=== PATIENT | female | born 1955 | race Caucasian/White ===

== ENCOUNTER → 2016-07-16 | Day surgery (SDC) | payer OTHER ==
[2016-07-16 11:34] LABS: HGB 14.4 g/dl (12.5-16.0); MCH 28.5 pg (25.0-31.0); MCHC 33.5 g/dL (32.0-36.0); MPV 8.9 fL (6.0-9.5); RBC 5.06 M/uL (4.20-5.40); RDW 12.5 % (11.5-14.0)
[2016-07-16 11:50] LABS: ALBUMIN 4.7 g/dL (3.5-5.0); BILIRUBIN - TOTAL 0.6 mg/dL (0.1-1.0); CREATININE 0.6 mg/dL (0.5-1.0); GLOBULIN (CALCULATION) 2.3 g/dL (2.2-4.2); POTASSIUM 4.2 mmol/L (3.5-5.1)
== END | disposition home or self-care (01) ==
LOC: FAS 11:14
PROVIDERS: Orthopaedic Surgery
DX: M23.222 Derangement of posterior horn of medial meniscus due to old tear or injury, left knee (principal); M17.12 Unilateral primary osteoarthritis, left knee; M25.862 Other specified joint disorders, left knee; K63.5 Polyp of colon; K21.9 Gastro-esophageal reflux disease without esophagitis; E03.9 Hypothyroidism, unspecified; Z90.49 Acquired absence of other specified parts of digestive tract; Z90.89 Acquired absence of other organs; Z79.1 Long term (current) use of non-steroidal anti-inflammatories (NSAID); Z79.899 Other long term (current) drug therapy; Z98.890 Other specified postprocedural states
CPT/HCPCS: 36415; 80053; J1170; J1885; J2405; J2704; J3010; J7325

== ENCOUNTER → 2020-12-04 | Day surgery (SDC) | payer OTHER ==
[~2020-12-04] VITALS: Ht 160 cm; Wt 61.2 kg
[~2020-12-04] MED LIST: COLESTIPOL HCL1 GM PO; IRON 100 PLUS1 EACH PO; LITHIUM CARBON450 MG PO; MOBIC15 MG PO; MONTELUKAST SOD10 MG PO; PERCOCET 5-3251 EACH PO; SYNTHROID100 MCG PO; VITAMIN B 12 PO; VITAMIN E45 MG PO
[2020-12-04 08:20] LABS: HCT 45.7 % (37.0-47.0); HGB 14.8 g/dl (12.5-16.0); MCH 28.7 pg (25.0-31.0); MCHC 32.4 g/dL (32.0-36.0); MCV 88.7 fL (78.0-100.0); MPV 8.7 fL (6.0-9.5); RBC 5.15 M/uL (4.20-5.40); RDW 11.9 % (11.5-14.0); WBC 6.6 K/uL (4.0-10.5)
[2020-12-04 08:36] LABS: BILIRUBIN - TOTAL 0.7 mg/dL (0.2-1.0); BUN/CREAT RATIO (CALC) 18.5 RATIO; CREATININE 0.54 mg/dL (0.51-0.95); GLOBULIN (CALCULATION) 3.2 g/dL; POTASSIUM 3.6 mmol/L (3.5-5.1); TOTAL PROTEIN 7.2 g/dL (6.4-8.2)
== END | disposition home or self-care (01) ==
LOC: FIS 11-20 09:30 → FAS 07:39 → FIS 07:39 → FAS 08:00 → EDSTATUS 08:30 → FIS 08:30
PROVIDERS: Surgery
DX: Z12.11 Encounter for screening for malignant neoplasm of colon (principal); Z79.899 Other long term (current) drug therapy; Z88.8 Allergy status to other drugs, medicaments and biological substances; Z90.89 Acquired absence of other organs
CPT/HCPCS: 36415; 76536; 80053; J1610; J2250; J2704; J7120

== ENCOUNTER 2021-07-17 06:30 | Day surgery (SDC) | payer OTHER ==
[~2021-07-17] VITALS: Ht 158 cm; Wt 57.0 kg
[~2021-07-17 06:30] MED LIST changes: +ACETAMINOPHEN500 M1 PO; +FISH OIL 1,2001 EACH PO; +LISINOPRIL10 MG PO; +OS-CAL500 MG PO
--- NOTE | 2021-07-17 13:46 | NUR ---
PT REQUESTS [facility] TO [facility]. INFORMATION FAXED TO CHRISSY AT [facility] AT [phone]. FAXED INFO TO ELICIA AT [facility] FOR AM [phone].
[2021-07-17 21:25] LABS: HCT 30.5 % (37.0-47.0); HGB 9.8 g/dL (12.5-16.0)
[2021-07-18 06:24] LABS: BASOPHIL 0.2 % (0-2); EOSINOPHIL 0.2 % (0-7); HCT 26.5 % (37.0-47.0); HGB 8.6 g/dl (12.5-16.0); MCH 29.1 pg (25.0-31.0); MCHC 32.5 g/dL (32.0-36.0); MCV 89.5 fL (78.0-100.0); MONOCYTE 11.2 % (0-12); MPV 8.7 fL (6.0-9.5); NEUTROPHIL 72.6 % (41-80); NRBC 0; PLT 210 K/uL (150-400); RBC 2.96 M/uL (4.20-5.40); RDW 12.1 % (11.5-14.0); WBC 11.8 K/uL (4.0-10.5)
[2021-07-18 06:40] LABS: CREATININE 0.62 mg/dL (0.51-0.95); POTASSIUM 3.9 mmol/L (3.5-5.1)
[2021-07-18] MEDS ORDERED: FEOSOL325 MG PO (08:48)
[2021-07-18] MEDS ORDERED: ASPIRIN81 MG PO (08:48)
[2021-07-18] MEDS ORDERED: ONDANSETRON HCL4 MG PO (08:48)
== END 2021-07-18 12:19 | disposition home health service (06) ==
LOC: FAS 06:30 → FOR 08:30 → FMS 09:13 → FOR 10:00 → FAS 07-18 12:19
PROVIDERS: Nurse Practitioner; Orthopaedic Surgery
DX: M16.12 Unilateral primary osteoarthritis, left hip (principal); I10 Essential (primary) hypertension; E03.9 Hypothyroidism, unspecified; F31.9 Bipolar disorder, unspecified; Z88.8 Allergy status to other drugs, medicaments and biological substances; Z79.899 Other long term (current) drug therapy
CPT/HCPCS: 36415; 73501; 76000; 80048; 85014; 85018; 85025; 86850; 86900; 86901; 94010; 94760; 97162; 97165; 97530-GP; 97535; C1776; J0171; J0690; J0697; J1100; J1170; J1885; J2250; J2270; J2370; J2405; J2704; J2795; J3010; J7120